=== PATIENT | male | born 2000 | race Caucasian/White ===

== ENCOUNTER 2019-02-08 09:39 | Emergency (ER) | payer BC, OTHER ==
[~2019-02-08] VITALS: Ht 172.7 cm; Wt 80.7 kg
[2019-02-08] MEDS ORDERED: AMOXICILLIN 50500 M1 PO (10:57)
[2019-02-08 11:24] VITALS: BP 130/77
== END 2019-02-08 12:07 | disposition home or self-care (01) ==
LOC: ER 09:39
DX: J03.90 Acute tonsillitis, unspecified (principal)